=== PATIENT | male | born 1985 | race Caucasian/White ===

== ENCOUNTER 2020-03-19 15:01 | Emergency (ER) | payer OTHER ==
[~2020-03-19] VITALS: Ht 165.1 cm; Wt 95.0 kg
[2020-03-19] MEDS ORDERED: BACITRACIN 0.9 GM PACKET OINTMENT TP ONE (16:00)
[2020-03-19] MEDS ORDERED: PERTUSS(ACELL),DIPH,TET VAC/PF 0.5 ML VIAL IM ONE (16:00)
[2020-03-19] MEDS ORDERED: POVIDONE-IODINE 10% 15 ML SOLUTION UD TP ONE (16:00)
[2020-03-19] MEDS ORDERED: LIDOCAINE 1% 10 ML VIAL INJ ONE (16:15)
[2020-03-19] MEDS ORDERED: IBUPROFEN 800 MG TABLET PO ONE (17:30)
[2020-03-19 17:47] VITALS: BP 122/70
== END 2020-03-19 17:47 | disposition home or self-care (01) ==
LOC: EMS 15:03
DX: S61.412A Laceration without foreign body of left hand, initial encounter (principal); S51.812A Laceration without foreign body of left forearm, initial encounter; S50.811A Abrasion of right forearm, initial encounter; F17.210 Nicotine dependence, cigarettes, uncomplicated; W19.XXXA Unspecified fall, initial encounter; Y93.89 Activity, other specified; Y92.89 Other specified places as the place of occurrence of the external cause; Y99.8 Other external cause status
CPT/HCPCS: 12001; 90471; 90715; 99283; J3490